=== PATIENT | male | born 1970 | race Two or more races ===

== ENCOUNTER 2020-02-23 12:48 | Emergency (ER) | payer MEDICAID ==
[~2020-02-23] VITALS: Ht 170.2 cm; Wt 124.7 kg
[2020-02-23 15:08] LABS: Basophils # (auto) 0.1 10 ^3/uL (0-0.2); Basophils % (auto) 0.6 % (0.0-2.0); Eosinophils # (auto) 0.2 10 ^3/uL (0-0.8); Eosinophils % (auto) 2.7 % (0.0-7.0); Hematocrit 43.9 % (41.0-53.0); Hemoglobin 14.9 g/dL (13.5-17.5); Lymphocytes # (auto) 1.5 10 ^3/uL (0.4-5.4); Lymphocytes % (auto) 17.6 % (10.0-50.0); Mean Corpuscular Hemoglobin 29.8 pg (28.0-32.0); Mean Corpuscular Hgb Conc. 33.8 g/dL (32.0-36.0); Mean Corpuscular Volume 88.2 fL (80.0-100.0); Monocytes # (auto) 0.9 10 ^3/uL (0-1.3); Monocytes % (auto) 10.3 % (0.0-12.0); Neutrophils % (auto) 68.8 % (37.0-80.0); Nucleated Red Blood Cells % 0.1 %; Platelet Count (auto) 260 10^3/uL (140-450); Red Blood Cells 4.98 10^6/uL (4.5-5.90); White Blood Cell 8.7 10^3/uL (4.4-10.8)
[2020-02-23 15:09] VITALS: BP 155/90
[2020-02-23 15:24] LABS: Albumin 3.1 g/dL (3.4-5.0); Calcium 8.6 mg/dL (8.5-10.1); Potassium 4.5 mmol/L (3.5-5.1)
[2020-02-23 15:33] LABS: BUN/Creatinine Ratio 22.1; Bilirubin, Total 0.2 mg/dL (0.2-1.0); Total Protein 8.1 g/dL (6.4-8.2)
[2020-02-23] MEDS ORDERED: cefTRIAXone 1GM/50ML D5W 50 ML IV ONE (16:00)
[2020-02-23] MEDS ORDERED: CLINDAMYCIN 900MG IV 50 ML IV ONE (16:00)
== END 2020-02-23 17:04 | disposition home or self-care (01) ==
LOC: ER 12:48
DX: E08.621 Diabetes mellitus due to underlying condition with foot ulcer (principal); L97.411 Non-pressure chronic ulcer of right heel and midfoot limited to breakdown of skin
CPT/HCPCS: 36415; 73700; 80053; 85025; 96365; 96368; 99284; J0696; J3490; 96366

== ENCOUNTER 2020-05-12 09:33 | Inpatient (IN) | payer MEDICAID ==
[2020-05-11] MEDS: InsuLIN REG 1unit/0.01ml Soln (100units/ml) SC SCH (22:34)
[~2020-05-12] VITALS: Ht 170.2 cm; Wt 124.0 kg
[2020-05-12] MEDS ORDERED: traMADol HCL 50 MG TAB PO ONE (10:45)
[2020-05-12 11:06] LABS: Basophils # (auto) 0.1 10 ^3/uL (0-0.2); Basophils % (auto) 0.6 % (0.0-2.0); Eosinophils # (auto) 0.2 10 ^3/uL (0-0.8); Eosinophils % (auto) 2.4 % (0.0-7.0); Hematocrit 41.8 % (41.0-53.0); Hemoglobin 14.3 g/dL (13.5-17.5); Lymphocytes # (auto) 1.2 10 ^3/uL (0.4-5.4); Mean Corpuscular Hgb Conc. 34.3 g/dL (32.0-36.0); Mean Corpuscular Volume 87.5 fL (80.0-100.0); Monocytes # (auto) 0.8 10 ^3/uL (0-1.3); Monocytes % (auto) 9.3 % (0.0-12.0); Neutrophils # (auto) 6.3 10 ^3/uL (1.6-8.6); Neutrophils % (auto) 73.7 % (37.0-80.0); Nucleated Red Blood Cells % 0.1 %; Red Blood Cells 4.78 10^6/uL (4.5-5.90); Red Cell Distribution Width 13.1 % (11.8-14.3); White Blood Cell 8.6 10^3/uL (4.4-10.8)
[2020-05-12 11:26] LABS: Calcium 8.5 mg/dL (8.5-10.1); Potassium 4.1 mmol/L (3.5-5.1)
[2020-05-12 11:29] LABS: BUN/Creatinine Ratio 17.2; Bilirubin, Total 0.3 mg/dL (0.2-1.0); Total Protein 7.7 g/dL (6.4-8.2)
[2020-05-12] MEDS ORDERED: VANCOMYCIN PER PHARMACY 0 MG IV SCH (13:30)
[2020-05-12] MEDS ORDERED: SODIUM CHLORIDE 0.9% 1,000 ML IV ONE (13:30)
[2020-05-12] MEDS ORDERED: ONDANSETRON HCL 4 MG/2 ML VIAL IV ONE (13:30)
[2020-05-12] MEDS ORDERED: HYDROcodone-ACET 5/325MG TAB PO ONE (13:30)
[2020-05-12] MEDS ORDERED: cefTRIAXone 1GM/50ML D5W 50 ML IV ONE (14:00)
[2020-05-12] MEDS ORDERED: GLIP10TA9 PO (14:50)
[2020-05-12] MEDS ORDERED: ERTU15TA PO (14:50)
[2020-05-12] MEDS ORDERED: SIMV-8 PO (14:50)
[2020-05-12] MEDS ORDERED: METF-929 PO (14:50)
[2020-05-12] MEDS ORDERED: SPIR25TA8 PO (14:50)
[2020-05-12] MEDS ORDERED: ONDANSETRON HCL 4 MG/2 ML VIAL IV PRN (15:00)
[2020-05-12] MEDS ORDERED: HYDROcodone-ACET 5/325MG TAB PO PRN (15:00)
[2020-05-12] MEDS: cefTRIAXone 1GM/50ML D5W 50 ML IV SCH (15:14)
[2020-05-12] MEDS: VANCOMYCIN 1GM/250ML 250 ML IV SCH (15:15)
[2020-05-12] MEDS ORDERED: DEXTROSE (50%) 50ML SYRG IV PRN (21:15)
[2020-05-12] MEDS ORDERED: LIDOCAINE 1% (LOCAL ANESTH.) PF 5ml SDV ID ONE (21:15)
[2020-05-12] MEDS: ACCU-CHEK COMFORT CURVE STRIP VI SCH (22:56)
[2020-05-12] MEDS: ATORVASTATIN 20 MG TAB PO SCH (23:36)
[2020-05-13] MEDS: VANCOMYCIN 1GM/250ML 250 ML IV SCH ×4 (00:50→22:50)
[2020-05-13 02:07] VITALS: BP 144/91
[2020-05-13 04:55] VITALS: BP 129/75
[2020-05-13 06:31] LABS: Basophils # (auto) 0 10 ^3/uL (0-0.2); Basophils % (auto) 0.5 % (0.0-2.0); Eosinophils # (auto) 0.2 10 ^3/uL (0-0.8); Eosinophils % (auto) 2.2 % (0.0-7.0); Hematocrit 39.2 % (41.0-53.0); Hemoglobin 13.4 g/dL (13.5-17.5); Lymphocytes # (auto) 1.9 10 ^3/uL (0.4-5.4); Lymphocytes % (auto) 24.3 % (10.0-50.0); Mean Corpuscular Hemoglobin 29.7 pg (28.0-32.0); Mean Corpuscular Hgb Conc. 34.2 g/dL (32.0-36.0); Mean Corpuscular Volume 86.9 fL (80.0-100.0); Monocytes # (auto) 1.1 10 ^3/uL (0-1.3); Monocytes % (auto) 13.6 % (0.0-12.0); Neutrophils # (auto) 4.7 10 ^3/uL (1.6-8.6); Neutrophils % (auto) 59.4 % (37.0-80.0); Red Blood Cells 4.51 10^6/uL (4.5-5.90); Red Cell Distribution Width 13.3 % (11.8-14.3); White Blood Cell 7.9 10^3/uL (4.4-10.8)
[2020-05-13] MEDS: ACCU-CHEK COMFORT CURVE STRIP VI SCH ×4 (06:34→22:30)
[2020-05-13] MEDS: InsuLIN REG 1unit/0.01ml Soln (100units/ml) SC SCH ×4 (06:35→22:30)
[2020-05-13 06:45] LABS: BUN/Creatinine Ratio 22.7; Calcium 8.2 mg/dL (8.5-10.1); Potassium 3.7 mmol/L (3.5-5.1)
[2020-05-13 06:50] LABS: INR 0.99 (0.9-1.15); Partial Thromboplastin Time 29.3 sec (23.0-31.2)
[2020-05-13 08:00] VITALS: BP 127/70
[2020-05-13] MEDS: cefTRIAXone 1GM/50ML D5W 50 ML IV SCH (08:58)
[2020-05-13 16:00] VITALS: BP 133/73
[2020-05-13 22:00] VITALS: BP 130/79
[2020-05-13] MEDS: ATORVASTATIN 20 MG TAB PO SCH (22:30)
[2020-05-14 05:00] VITALS: BP 126/85
[2020-05-14] MEDS: VANCOMYCIN 1GM/250ML 250 ML IV SCH ×3 (05:30→23:30)
[2020-05-14] MEDS ORDERED: ROPIVACAINE 0.5% (5MG/ML) 20ML AMPULE IJ ONE (06:53)
[2020-05-14] MEDS ORDERED: NEOMYCIN-BACITRACIN-POLYM 15GM TOP OINT TOP ONE (06:53)
[2020-05-14] MEDS ORDERED: ceFAZolin 1GM VL ONE (06:54)
[2020-05-14] MEDS: ACCU-CHEK COMFORT CURVE STRIP VI SCH ×4 (07:09→22:00)
[2020-05-14] MEDS: InsuLIN REG 1unit/0.01ml Soln (100units/ml) SC SCH ×4 (07:09→22:00)
[2020-05-14] MEDS ORDERED: ceFAZolin 1GM/50ML 50 ML IV ONE (07:12)
[2020-05-14] MEDS ORDERED: MIDAZOLAM HCL 2MG/2ML 2ml VIAL (1mg/ml) ONE (07:33)
[2020-05-14] MEDS ORDERED: diphenhdrAMINE HCL 50 MG/1 ML VL ONE (07:39)
[2020-05-14] MEDS ORDERED: GLYCOPYRROLATE 0.2 MG/ML 1ML VIAL ONE ×2 (07:39→07:42)
[2020-05-14] MEDS ORDERED: METOCLOPRAMIDE HCL 5MG/ml INJ 2ml VIAL ONE (07:39)
[2020-05-14] MEDS ORDERED: KETAMINE HCL 10 ML ONE (07:42)
[2020-05-14] MEDS ORDERED: LIDOCAINE 2% (LOCAL ANESTH.) PF 5ml SDV ONE (07:45)
[2020-05-14] MEDS ORDERED: PROPOFOL 10 MG/ML 20 ML IV ONE (07:45)
[2020-05-14 08:00] VITALS: BP 153/88
[2020-05-14] MEDS ORDERED: NALOXONE HCL 0.4 MG/ML VIAL IV PRN (08:00)
[2020-05-14] MEDS ORDERED: hydrALAZINE HCL 20 MG/ML VL IV PRN (08:00)
[2020-05-14] MEDS ORDERED: HYDROmorphone HCL 2 MG/ML VL IV PRN ×2 (08:00)
[2020-05-14] MEDS ORDERED: ONDANSETRON HCL 4 MG/2 ML VIAL IV PRN (08:00)
[2020-05-14] MEDS ORDERED: ACCU-CHEK COMFORT CURVE STRIP VI ONE (08:00)
[2020-05-14] MEDS: cefTRIAXone 1GM/50ML D5W 50 ML IV SCH (09:25)
[2020-05-14 16:00] VITALS: BP 132/75
[2020-05-14] MEDS: ATORVASTATIN 20 MG TAB PO SCH (22:00)
[2020-05-14 22:21] VITALS: BP 149/84
[2020-05-15 05:00] VITALS: BP 148/89
[2020-05-15 06:07] LABS: Basophils # (auto) 0.1 10 ^3/uL (0-0.2); Basophils % (auto) 0.8 % (0.0-2.0); Eosinophils # (auto) 0.3 10 ^3/uL (0-0.8); Eosinophils % (auto) 3.8 % (0.0-7.0); Hemoglobin 13.4 g/dL (13.5-17.5); Lymphocytes # (auto) 1.7 10 ^3/uL (0.4-5.4); Lymphocytes % (auto) 20.1 % (10.0-50.0); Mean Corpuscular Hemoglobin 29.8 pg (28.0-32.0); Mean Corpuscular Hgb Conc. 34.4 g/dL (32.0-36.0); Mean Corpuscular Volume 86.7 fL (80.0-100.0); Monocytes # (auto) 0.7 10 ^3/uL (0-1.3); Monocytes % (auto) 8.2 % (0.0-12.0); Neutrophils # (auto) 5.6 10 ^3/uL (1.6-8.6); Neutrophils % (auto) 67.1 % (37.0-80.0); Red Cell Distribution Width 13.3 % (11.8-14.3); White Blood Cell 8.4 10^3/uL (4.4-10.8)
[2020-05-15 06:13] LABS: Calcium 8.4 mg/dL (8.5-10.1); Potassium 3.7 mmol/L (3.5-5.1)
[2020-05-15 06:14] LABS: BUN/Creatinine Ratio 22.4
[2020-05-15] MEDS: ACCU-CHEK COMFORT CURVE STRIP VI SCH ×4 (07:00→22:00)
[2020-05-15] MEDS: InsuLIN REG 1unit/0.01ml Soln (100units/ml) SC SCH ×4 (07:00→22:00)
[2020-05-15 08:00] VITALS: BP 141/88
[2020-05-15] MEDS: VANCOMYCIN 1GM/250ML 250 ML IV SCH ×2 (08:27→16:36)
[2020-05-15] MEDS: cefTRIAXone 1GM/50ML D5W 50 ML IV SCH (10:11)
[2020-05-15 16:00] VITALS: BP 146/65
[2020-05-15] MEDS ORDERED: CATHFLO ACTIVASE (ALTEPLASE) 2 MG VIAL IV ONE (16:45)
[2020-05-15 22:00] VITALS: BP 135/79
[2020-05-15] MEDS: ATORVASTATIN 20 MG TAB PO SCH (22:00)
[2020-05-16] MEDS: VANCOMYCIN 1GM/250ML 250 ML IV SCH ×2 (00:13→11:04)
[2020-05-16 05:00] VITALS: BP 141/90
[2020-05-16] MEDS: InsuLIN REG 1unit/0.01ml Soln (100units/ml) SC SCH ×2 (06:24→11:30)
[2020-05-16] MEDS: ACCU-CHEK COMFORT CURVE STRIP VI SCH ×2 (06:24→11:30)
[2020-05-16 08:00] VITALS: BP 139/87
[2020-05-16] MEDS: cefTRIAXone 1GM/50ML D5W 50 ML IV SCH (09:23)
[2020-05-16] MEDS ORDERED: [UNRECOGNIZED DRUG - OTHER] IV (13:17)
[2020-05-16] MEDS ORDERED: CEFT1INJ17 IV (13:17)
[2020-05-16] MEDS ORDERED: HYDR-4902 PO (13:17)
[2020-05-16 13:57] VITALS: BP 141/90
== END 2020-05-16 16:00 | disposition home health service (06) | DRG 314 ==
LOC: ER 09:33 → TELE 09:34 → TELE-EAST 23:51 → TELE-CENTR 05-13 20:31
PROVIDERS: ADMIT Internal Medicine; ATTEND Internal Medicine
PROC: 02HV33Z Insertion of Infusion Device into Superior Vena Cava, Percutaneous Approach (ICD-10-PCS; 2020-05-13)
PROC: B548ZZA Ultrasonography of Superior Vena Cava, Guidance (ICD-10-PCS; 2020-05-13)
PROC: 0QTN0ZZ Resection of Right Metatarsal, Open Approach (ICD-10-PCS; 2020-05-14)
PROC: 0Y6P0Z0 Detachment at Right 1st Toe, Complete, Open Approach (ICD-10-PCS; principal; 2020-05-14 07:35)
DX: E11.69 Type 2 diabetes mellitus with other specified complication (principal); E11.621 Type 2 diabetes mellitus with foot ulcer; L97.519 Non-pressure chronic ulcer of other part of right foot with unspecified severity; L03.115 Cellulitis of right lower limb; E78.5 Hyperlipidemia, unspecified; I10 Essential (primary) hypertension; M86.8X7 Other osteomyelitis, ankle and foot; Z20.822 Contact with and (suspected) exposure to COVID-19; M00.9 Pyogenic arthritis, unspecified
CPT/HCPCS: 36415; 36569; 71045; 73700; 80048; 80053; 80202; 82962; 85025; 85610; 85730; 87070; 87075; 87077; 87186; 87205; 87426; 93926; 96361; 96365; 96366; 96368; 96375; G0378; J0690; J0696; J1815; J2001; J2250; J2405; J2704

== ENCOUNTER 2021-08-15 15:40 | Emergency (ER) | payer MEDICAID ==
[~2021-08-15] VITALS: Ht 172.7 cm; Wt 124.7 kg
[~2021-08-15 15:40] MED LIST: CEFT1INJ17 IV; ERTU15TA PO; GLIP10TA9 PO; HYDR-4902 PO; METF-929 PO; SIMV-8 PO; SPIR25TA8 PO; [UNRECOGNIZED DRUG - OTHER] IV
[2021-08-15] MEDS ORDERED: VANCOMYCIN 1GM/250ML 250 ML IV ONE (17:45)
[2021-08-15] MEDS ORDERED: CEFEPIME 2 GM in SODIUM CHL 0.9% 50 ML IV ONE (17:45)
[2021-08-15 18:26] LABS: Basophils # (auto) 0.1 10 ^3/uL (0-0.2); Basophils % (auto) 0.9 % (0.0-2.0); Eosinophils # (auto) 0.3 10 ^3/uL (0-0.8); Eosinophils % (auto) 4.2 % (0.0-7.0); Hematocrit 42.9 % (41.0-53.0); Hemoglobin 14.4 g/dL (13.5-17.5); Lymphocytes % (auto) 25.6 % (10.0-50.0); Mean Corpuscular Hemoglobin 29.3 pg (28.0-32.0); Mean Corpuscular Hgb Conc. 33.7 g/dL (32.0-36.0); Mean Corpuscular Volume 87.2 fL (80.0-100.0); Monocytes # (auto) 0.5 10 ^3/uL (0-1.3); Monocytes % (auto) 6.7 % (0.0-12.0); Neutrophils % (auto) 62.6 % (37.0-80.0); Red Blood Cells 4.92 10^6/uL (4.5-5.90); Red Cell Distribution Width 13.2 % (11.8-14.3)
[2021-08-15 18:40] LABS: Calcium 8.7 mg/dL (8.5-10.1); Potassium 3.9 mmol/L (3.5-5.1)
[2021-08-15 18:43] LABS: BUN/Creatinine Ratio 23.2
[2021-08-15] MEDS ORDERED: LEVO750T64 PO (21:07)
[2021-08-15 22:28] VITALS: BP 146/95
[2021-08-16] MEDS ORDERED: LEVO750T64 PO (02:17)
== END 2021-08-16 02:20 | disposition home or self-care (01) ==
LOC: ER 15:40
DX: E11.621 Type 2 diabetes mellitus with foot ulcer (principal); L97.511 Non-pressure chronic ulcer of other part of right foot limited to breakdown of skin; I10 Essential (primary) hypertension; Z79.899 Other long term (current) drug therapy
CPT/HCPCS: 36415; 73630; 80048; 83605; 85025; 85652; 87040; 96365; 96366; 96367; 99284; J0692; J3370

== ENCOUNTER 2022-05-05 01:11 | Inpatient (IN) | payer MEDICAID ==
[~2022-05-05] VITALS: Ht 170.2 cm; Wt 117.9 kg
[~2022-05-05 01:11] MED LIST changes: +LEVO750T64 PO
[2022-05-05 03:29] LABS: Basophils # (auto) 0.1 10 ^3/uL (0-0.2); Basophils % (auto) 0.7 % (0.0-2.0); Eosinophils # (auto) 0.3 10 ^3/uL (0-0.8); Eosinophils % (auto) 2.7 % (0.0-7.0); Hematocrit 46.8 % (41.0-53.0); Hemoglobin 15.6 g/dL (13.5-17.5); Lymphocytes % (auto) 18.6 % (10.0-50.0); Mean Corpuscular Hemoglobin 29.3 pg (28.0-32.0); Mean Corpuscular Hgb Conc. 33.4 g/dL (32.0-36.0); Mean Corpuscular Volume 87.7 fL (80.0-100.0); Monocytes # (auto) 0.8 10 ^3/uL (0-1.3); Neutrophils # (auto) 7.4 10 ^3/uL (1.6-8.6); Red Blood Cells 5.33 10^6/uL (4.5-5.90); Red Cell Distribution Width 14.2 % (11.8-14.3); White Blood Cell 10.6 10^3/uL (4.4-10.8)
[2022-05-05 03:38] LABS: Albumin 3.3 g/dL (3.4-5.0); Potassium 4.4 mmol/L (3.5-5.1)
[2022-05-05 03:47] LABS: BUN/Creatinine Ratio 19.4; Bilirubin, Total 0.4 mg/dL (0.2-1.0); CRP High Sensitivity 7.84 mg/dL (< 0.3); Total Protein 7.5 g/dL (6.4-8.2)
[2022-05-05] MEDS ORDERED: TETANUS-DIPTH-ACEL PERTUSSIS 0.5ML SYR Tdap IM ONE (06:00)
[2022-05-05] MEDS ORDERED: cefTRIAXone 1GM/50ML D5W 50 ML IV ONE (06:00)
[2022-05-05] MEDS ORDERED: DOCUSATE SOD 100 MG CAP PO PRN (10:15)
[2022-05-05] MEDS ORDERED: VANCOMYCIN PER PHARMACY 0 MG IV SCH (10:15)
[2022-05-05] MEDS ORDERED: ONDANSETRON HCL 4 MG/2 ML VIAL IV PRN (10:15)
[2022-05-05] MEDS ORDERED: DEXTROSE (50%) 50ML SYRG IV PRN (10:15)
[2022-05-05] MEDS ORDERED: SIMVASTATIN 20 MG TAB PO SCH (10:29)
[2022-05-05] MEDS ORDERED: VANCOMYCIN 1GM/250ML 250 ML IV ONE (10:45)
[2022-05-05] MEDS: SODIUM CHLORIDE 0.9% 1,000 ML IV SCH ×2 (11:05→18:35)
[2022-05-05] MEDS: ACCU-CHEK COMFORT CURVE STRIP VI SCH ×3 (11:43→22:26)
[2022-05-05] MEDS: InsuLIN REG 1unit/0.01ml Soln (100units/ml) SC SCH ×3 (12:03→22:00)
[2022-05-05] MEDS: VANCOMYCIN 1GM/250ML 250 ML IV SCH (18:38)
[2022-05-05] MEDS: SIMVASTATIN 20 MG TABLET PO SCH (21:00)
[2022-05-06] MEDS: VANCOMYCIN 1GM/250ML 250 ML IV SCH ×5 (00:09→23:53)
[2022-05-06] MEDS: SODIUM CHLORIDE 0.9% 1,000 ML IV SCH ×3 (02:55→19:35)
[2022-05-06 06:54] LABS: Potassium 3.9 mmol/L (3.5-5.1)
[2022-05-06 06:56] LABS: Basophils # (auto) 0 10 ^3/uL (0-0.2); Basophils % (auto) 0.4 % (0.0-2.0); Eosinophils # (auto) 0.3 10 ^3/uL (0-0.8); Eosinophils % (auto) 2.8 % (0.0-7.0); Hematocrit 44.2 % (41.0-53.0); Hemoglobin 14.6 g/dL (13.5-17.5); Lymphocytes # (auto) 1.2 10 ^3/uL (0.4-5.4); Mean Corpuscular Hemoglobin 28.7 pg (28.0-32.0); Mean Corpuscular Hgb Conc. 32.9 g/dL (32.0-36.0); Monocytes # (auto) 0.8 10 ^3/uL (0-1.3); Monocytes % (auto) 9.2 % (0.0-12.0); Neutrophils # (auto) 6.7 10 ^3/uL (1.6-8.6); Neutrophils % (auto) 74.6 % (37.0-80.0); Nucleated Red Blood Cells % 0.3 %; Red Blood Cells 5.08 10^6/uL (4.5-5.90); Red Cell Distribution Width 13.7 % (11.8-14.3)
[2022-05-06] MEDS: InsuLIN REG 1unit/0.01ml Soln (100units/ml) SC SCH ×4 (07:00→22:00)
[2022-05-06 07:01] LABS: Albumin 2.9 g/dL (3.4-5.0); BUN/Creatinine Ratio 22.2; Bilirubin, Total 0.5 mg/dL (0.2-1.0); Calcium 8.3 mg/dL (8.5-10.1); Total Protein 6.2 g/dL (6.4-8.2)
[2022-05-06] MEDS: ACCU-CHEK COMFORT CURVE STRIP VI SCH ×4 (07:02→22:06)
[2022-05-06] MEDS: cefTRIAXone 1GM/50ML D5W 50 ML IV SCH (09:40)
[2022-05-06] MEDS: ENOXAPARIN SOD 40 MG/0.4 ML SYRINGE SC SCH (09:43)
[2022-05-06 12:57] VITALS: BP 139/78
[2022-05-06 13:56] VITALS: BP 144/89
[2022-05-06 17:00] VITALS: BP 145/82
[2022-05-06] MEDS: SIMVASTATIN 20 MG TABLET PO SCH (21:44)
[2022-05-06 21:46] VITALS: BP 152/88
[2022-05-07] MEDS: SODIUM CHLORIDE 0.9% 1,000 ML IV SCH ×3 (03:55→20:35)
[2022-05-07] MEDS: VANCOMYCIN 1GM/250ML 250 ML IV SCH ×4 (04:28→22:46)
[2022-05-07 04:36] VITALS: BP 140/77
[2022-05-07] MEDS: ACCU-CHEK COMFORT CURVE STRIP VI SCH ×4 (06:26→21:40)
[2022-05-07] MEDS: InsuLIN REG 1unit/0.01ml Soln (100units/ml) SC SCH (06:27)
[2022-05-07 09:00] VITALS: BP 167/91
[2022-05-07] MEDS: cefTRIAXone 1GM/50ML D5W 50 ML IV SCH (10:15)
[2022-05-07] MEDS: ENOXAPARIN SOD 40 MG/0.4 ML SYRINGE SC SCH (10:16)
[2022-05-07 13:00] VITALS: BP 153/87
[2022-05-07] MEDS: metFORMIN HYDROCHLORIDE 500 MG TAB PO SCH ×2 (13:00→21:30)
[2022-05-07] MEDS: glipiZIDE 5 MG TAB PO SCH ×2 (13:00→21:40)
[2022-05-07 17:00] VITALS: BP 149/81
[2022-05-07] MEDS ORDERED: STEGLATRO 15 MG PO SCH (17:00)
[2022-05-07] MEDS: DAKINS QUARTER STR 0.125% (NaHypochlorite) 473 ML TOPICAL SOL TOP SCH (21:40)
[2022-05-07 21:51] VITALS: BP 144/82
[2022-05-07] MEDS ORDERED: ATORVASTATIN 20 MG TAB PO SCH (22:00)
[2022-05-07] MEDS ORDERED: PATIENTS OWN MEDICATION PO SCH (22:00)
[2022-05-08 05:00] VITALS: BP 127/75
[2022-05-08] MEDS: VANCOMYCIN 1GM/250ML 250 ML IV SCH ×2 (05:00→11:00)
[2022-05-08] MEDS: SODIUM CHLORIDE 0.9% 1,000 ML IV SCH ×3 (05:58→21:17)
[2022-05-08] MEDS: ACCU-CHEK COMFORT CURVE STRIP VI SCH ×4 (05:59→21:16)
[2022-05-08] MEDS ORDERED: glipiZIDE 5 MG TAB PO SCH (07:00)
[2022-05-08] MEDS ORDERED: metFORMIN HYDROCHLORIDE 500 MG TAB PO SCH ×2 (08:00→10:00)
[2022-05-08 09:00] VITALS: BP 145/81
[2022-05-08] MEDS: glipiZIDE 5 MG TAB PO SCH ×2 (09:34→21:16)
[2022-05-08] MEDS: metFORMIN HYDROCHLORIDE 500 MG TAB PO SCH ×2 (09:35→21:15)
[2022-05-08] MEDS: cefTRIAXone 1GM/50ML D5W 50 ML IV SCH (09:35)
[2022-05-08] MEDS: ENOXAPARIN SOD 40 MG/0.4 ML SYRINGE SC SCH (09:35)
[2022-05-08] MEDS: DAKINS QUARTER STR 0.125% (NaHypochlorite) 473 ML TOPICAL SOL TOP SCH ×2 (09:36→21:16)
[2022-05-08] MEDS ORDERED: AMPICILLIN INJ 1 GM in SODIUM CHL 0.9% 50 ML IV SCH (12:00)
[2022-05-08 12:47] VITALS: BP 135/80
[2022-05-08] MEDS: AMPICILLIN INJ 1 GM in SODIUM CHL 0.9% 50 ML IV SCH ×2 (14:44→21:11)
[2022-05-08 16:59] VITALS: BP 138/78
[2022-05-08] MEDS: ATORVASTATIN 20 MG TAB PO SCH (18:13)
[2022-05-08] MEDS: STEGLATRO 15 MG PO SCH (21:15)
[2022-05-08 22:00] VITALS: BP 160/84
[2022-05-09] MEDS: AMPICILLIN INJ 1 GM in SODIUM CHL 0.9% 50 ML IV SCH ×4 (02:35→22:34)
[2022-05-09 04:52] VITALS: BP 128/73
[2022-05-09] MEDS: SODIUM CHLORIDE 0.9% 1,000 ML IV SCH ×3 (05:23→22:35)
[2022-05-09 05:37] LABS: Albumin 2.9 g/dL (3.4-5.0); Calcium 8.6 mg/dL (8.5-10.1); Potassium 4.2 mmol/L (3.5-5.1)
[2022-05-09 05:40] LABS: Basophils # (auto) 0.1 10 ^3/uL (0-0.2); Basophils % (auto) 0.8 % (0.0-2.0); Eosinophils # (auto) 0.3 10 ^3/uL (0-0.8); Eosinophils % (auto) 3.5 % (0.0-7.0); Hematocrit 44.1 % (41.0-53.0); Hemoglobin 14.5 g/dL (13.5-17.5); Lymphocytes # (auto) 1.8 10 ^3/uL (0.4-5.4); Lymphocytes % (auto) 24.2 % (10.0-50.0); Mean Corpuscular Hemoglobin 28.6 pg (28.0-32.0); Mean Corpuscular Hgb Conc. 32.9 g/dL (32.0-36.0); Mean Corpuscular Volume 86.8 fL (80.0-100.0); Monocytes # (auto) 0.6 10 ^3/uL (0-1.3); Monocytes % (auto) 8.6 % (0.0-12.0); Neutrophils # (auto) 4.8 10 ^3/uL (1.6-8.6); Neutrophils % (auto) 62.9 % (37.0-80.0); Red Blood Cells 5.08 10^6/uL (4.5-5.90); Red Cell Distribution Width 13.6 % (11.8-14.3); White Blood Cell 7.6 10^3/uL (4.4-10.8)
[2022-05-09 05:43] LABS: BUN/Creatinine Ratio 22.5; Bilirubin, Total 0.4 mg/dL (0.2-1.0); Total Protein 6.4 g/dL (6.4-8.2)
[2022-05-09] MEDS: ACCU-CHEK COMFORT CURVE STRIP VI SCH ×4 (05:51→22:00)
[2022-05-09 09:00] VITALS: BP 130/83
[2022-05-09] MEDS: ENOXAPARIN SOD 40 MG/0.4 ML SYRINGE SC SCH (09:32)
[2022-05-09] MEDS: metFORMIN HYDROCHLORIDE 500 MG TAB PO SCH ×2 (09:33→22:31)
[2022-05-09] MEDS: glipiZIDE 5 MG TAB PO SCH ×2 (09:34→22:31)
[2022-05-09] MEDS: DAKINS QUARTER STR 0.125% (NaHypochlorite) 473 ML TOPICAL SOL TOP SCH ×2 (09:38→22:00)
[2022-05-09 13:00] VITALS: BP 127/71
[2022-05-09 17:00] VITALS: BP 137/79
[2022-05-09] MEDS: ATORVASTATIN 20 MG TAB PO SCH (17:57)
[2022-05-09 21:52] VITALS: BP 159/92
[2022-05-09] MEDS: STEGLATRO 15 MG PO SCH (22:32)
[2022-05-10] MEDS: AMPICILLIN INJ 1 GM in SODIUM CHL 0.9% 50 ML IV SCH ×3 (04:19→15:00)
[2022-05-10 05:01] VITALS: BP 113/70
[2022-05-10] MEDS: ACCU-CHEK COMFORT CURVE STRIP VI SCH ×2 (07:00→11:30)
[2022-05-10] MEDS: SODIUM CHLORIDE 0.9% 1,000 ML IV SCH ×2 (07:00→15:15)
[2022-05-10 09:00] VITALS: BP 113/65
[2022-05-10] MEDS: metFORMIN HYDROCHLORIDE 500 MG TAB PO SCH (09:50)
[2022-05-10] MEDS: glipiZIDE 5 MG TAB PO SCH (09:51)
[2022-05-10] MEDS: ENOXAPARIN SOD 40 MG/0.4 ML SYRINGE SC SCH (09:51)
[2022-05-10] MEDS: DAKINS QUARTER STR 0.125% (NaHypochlorite) 473 ML TOPICAL SOL TOP SCH (10:00)
[2022-05-10] MEDS ORDERED: AMPI500C8 PO (11:01)
[2022-05-10] MEDS ORDERED: HYDR-4902 PO (11:01)
[2022-05-10 13:00] VITALS: BP 137/85
== END 2022-05-10 16:00 | disposition home or self-care (01) | DRG 344 ==
LOC: ER 01:11 → OVERFLOW 10:19 → EAST 05-06 12:31 → WEST WING 05-06 13:30
PROVIDERS: ADMIT Nurse Practitioner Family; ATTEND Family Medicine
DX: M86.8X7 Other osteomyelitis, ankle and foot (principal); E11.21 Type 2 diabetes mellitus with diabetic nephropathy; E11.40 Type 2 diabetes mellitus with diabetic neuropathy, unspecified; L97.512 Non-pressure chronic ulcer of other part of right foot with fat layer exposed; E11.51 Type 2 diabetes mellitus with diabetic peripheral angiopathy without gangrene; E11.69 Type 2 diabetes mellitus with other specified complication; E11.621 Type 2 diabetes mellitus with foot ulcer; E11.65 Type 2 diabetes mellitus with hyperglycemia; Z20.822 Contact with and (suspected) exposure to COVID-19; E78.5 Hyperlipidemia, unspecified; M19.90 Unspecified osteoarthritis, unspecified site; Z83.3 Family history of diabetes mellitus; Z89.411 Acquired absence of right great toe; Z89.429 Acquired absence of other toe(s), unspecified side
CPT/HCPCS: 36415; 73630; 73700; 80053; 80202; 82962; 83036; 85025; 85652; 86141; 87040; 87205; 87426; 90471; 90715; 93926; 93971; 96365; 96367; G0378; J0696; J1815

== ENCOUNTER 2022-08-15 12:53 | Inpatient (IN) | payer MEDICAID ==
[~2022-08-15] VITALS: Ht 170.2 cm; Wt 123.1 kg
[~2022-08-15 12:53] MED LIST changes: +AMPI500C8 PO; -CEFT1INJ17 IV; -LEVO750T64 PO; -[UNRECOGNIZED DRUG - OTHER] IV
[2022-08-15 14:33] LABS: Basophils # (auto) 0.1 10 ^3/uL (0-0.2); Basophils % (auto) 0.6 % (0.0-2.0); Eosinophils # (auto) 0.3 10 ^3/uL (0-0.8); Eosinophils % (auto) 3.6 % (0.0-7.0); Hematocrit 45.8 % (41.0-53.0); Hemoglobin 15.6 g/dL (13.5-17.5); Lymphocytes # (auto) 2.2 10 ^3/uL (0.4-5.4); Lymphocytes % (auto) 24.8 % (10.0-50.0); Mean Corpuscular Hemoglobin 29.4 pg (28.0-32.0); Mean Corpuscular Hgb Conc. 34.1 g/dL (32.0-36.0); Mean Corpuscular Volume 86.1 fL (80.0-100.0); Monocytes # (auto) 0.6 10 ^3/uL (0-1.3); Monocytes % (auto) 6.3 % (0.0-12.0); Neutrophils # (auto) 5.7 10 ^3/uL (1.6-8.6); Neutrophils % (auto) 64.7 % (37.0-80.0); Nucleated Red Blood Cells % 0.3 %; Red Blood Cells 5.31 10^6/uL (4.5-5.90); Red Cell Distribution Width 14.3 % (11.8-14.3); White Blood Cell 8.8 10^3/uL (4.4-10.8)
[2022-08-15 14:47] LABS: INR 0.87 (0.9-1.15); Partial Thromboplastin Time 27.1 sec (24.6-33.4)
[2022-08-15 14:55] LABS: Albumin 3.2 g/dL (3.4-5.0); Calcium 9.1 mg/dL (8.5-10.1); Potassium 4.3 mmol/L (3.5-5.1)
[2022-08-15 14:57] LABS: BUN/Creatinine Ratio 17.6 (10.0-20.0)
[2022-08-15 14:59] LABS: Bilirubin, Total 0.2 mg/dL (0.2-1.0); Total Protein 8.1 g/dL (6.4-8.2)
[2022-08-15] MEDS ORDERED: CLINDAMYCIN 600MG IV 50 ML IV ONE (15:30)
[2022-08-15] MEDS: SODIUM CHLORIDE 0.9% 1,000 ML IV SCH (16:00)
[2022-08-15] MEDS ORDERED: ACETAMINOPHEN 325 MG TAB PO PRN (16:00)
[2022-08-15] MEDS ORDERED: HYDROcodone-ACET 5/325MG TAB PO PRN (16:00)
[2022-08-15] MEDS ORDERED: DEXTROSE (50%) 50ML SYRG IV PRN (16:00)
[2022-08-15] MEDS ORDERED: PANTOPRAZOLE 40 MG/10 ML VIAL INJ IV ONE (16:15)
[2022-08-15] MEDS ORDERED: CLINDAMYCIN 900MG IV 50 ML IV ONE (16:30)
[2022-08-15 16:32] LABS: Cholesterol 157 mg/dL (< 200)
[2022-08-15 16:35] LABS: HDL Cholesterol 32 mg/dL (40-59); LDL Cholesterol 103 mg/dL (< 100); Triglycerides 303 mg/dL (< 150)
[2022-08-15] MEDS: InsuLIN REG 1unit/0.01ml Soln (100units/ml) SC SCH ×2 (17:00→22:54)
[2022-08-15] MEDS: ACCU-CHEK COMFORT CURVE STRIP VI SCH ×2 (17:04→22:54)
[2022-08-15] MEDS: ATORVASTATIN 20 MG TAB PO SCH (23:05)
[2022-08-16] MEDS: CLINDAMYCIN 600MG IV 50 ML IV SCH ×4 (00:30→21:40)
[2022-08-16] MEDS: SODIUM CHLORIDE 0.9% 1,000 ML IV SCH ×2 (05:31→06:31)
[2022-08-16 06:27] LABS: Basophils # (auto) 0 10 ^3/uL (0-0.2); Basophils % (auto) 0.6 % (0.0-2.0); Eosinophils # (auto) 0.3 10 ^3/uL (0-0.8); Eosinophils % (auto) 4.2 % (0.0-7.0); Hematocrit 42.5 % (41.0-53.0); Hemoglobin 14.5 g/dL (13.5-17.5); Lymphocytes # (auto) 1.8 10 ^3/uL (0.4-5.4); Lymphocytes % (auto) 22.8 % (10.0-50.0); Mean Corpuscular Hemoglobin 29.7 pg (28.0-32.0); Mean Corpuscular Hgb Conc. 34.1 g/dL (32.0-36.0); Mean Corpuscular Volume 87.2 fL (80.0-100.0); Monocytes # (auto) 0.6 10 ^3/uL (0-1.3); Monocytes % (auto) 7.6 % (0.0-12.0); Neutrophils # (auto) 5.1 10 ^3/uL (1.6-8.6); Neutrophils % (auto) 64.8 % (37.0-80.0); Nucleated Red Blood Cells % 0.1 %; Red Blood Cells 4.88 10^6/uL (4.5-5.90); Red Cell Distribution Width 14.5 % (11.8-14.3); White Blood Cell 7.8 10^3/uL (4.4-10.8)
[2022-08-16] MEDS: ACCU-CHEK COMFORT CURVE STRIP VI SCH ×4 (06:38→21:41)
[2022-08-16] MEDS: InsuLIN REG 1unit/0.01ml Soln (100units/ml) SC SCH ×4 (06:39→22:00)
[2022-08-16 06:48] LABS: Potassium 4.2 mmol/L (3.5-5.1)
[2022-08-16 06:56] LABS: BUN/Creatinine Ratio 15.7 (10.0-20.0); Bilirubin, Total 0.3 mg/dL (0.2-1.0); Calcium 8.4 mg/dL (8.5-10.1); Total Protein 6.8 g/dL (6.4-8.2)
[2022-08-16] MEDS: SPIRONOLACTONE 25 MG TAB PO SCH (09:36)
[2022-08-16] MEDS: PANTOPRAZOLE 40 MG/10 ML VIAL INJ IV SCH (10:00)
[2022-08-16] MEDS ORDERED: ceFAZolin 1GM/50ML 100 ML IV ONE (10:24)
[2022-08-16] MEDS ORDERED: ROPIVACAINE 0.5% (5MG/ML) 20ML AMPULE IJ ONE (12:34)
[2022-08-16] MEDS ORDERED: ceFAZolin 1GM VL ONE (12:35)
[2022-08-16] MEDS ORDERED: fentaNYL CITRATE 100 MCG/2 ML VL ONE (12:35)
[2022-08-16] MEDS ORDERED: MIDAZOLAM HCL 2MG/2ML 2ml VIAL (1mg/ml) ONE (12:35)
[2022-08-16] MEDS ORDERED: MEPERIDINE HCL (25 MG/ML) 1ML VIAL ONE (12:35)
[2022-08-16] MEDS ORDERED: LABETALOL HCL 5 MG/ML 4ML SYRINGE IV PRN ×2 (12:45)
[2022-08-16] MEDS ORDERED: HYDROmorphone HCL 2 MG/ML VL/or syr IV PRN ×2 (12:45)
[2022-08-16] MEDS ORDERED: ONDANSETRON HCL 4 MG/2 ML VIAL IV PRN ×2 (12:45)
[2022-08-16] MEDS ORDERED: MIDAZOLAM HCL 2MG/2ML 2ml VIAL (1mg/ml) IV PRN ×2 (12:45)
[2022-08-16] MEDS ORDERED: ACCU-CHEK COMFORT CURVE STRIP VI ONE (12:45)
[2022-08-16] MEDS ORDERED: ePHEDrine SULFATE 50 MG/ML AMP IV PRN ×2 (12:45)
[2022-08-16] MEDS ORDERED: MORPHINE SULFATE 4 MG/ML SYR/VIAL IV PRN ×2 (12:45)
[2022-08-16] MEDS ORDERED: DexAMETHasone SOD PHOS 10MG/1ML VIAL INJ ONE (13:35)
[2022-08-16] MEDS ORDERED: PROPOFOL 10 MG/ML 20 ML IV ONE (13:35)
[2022-08-16 15:00] VITALS: BP 158/87
[2022-08-16] MEDS: ATORVASTATIN 20 MG TAB PO SCH (21:36)
[2022-08-16 22:00] VITALS: BP 154/80
[2022-08-17 05:00] VITALS: BP 121/55
[2022-08-17] MEDS: ACCU-CHEK COMFORT CURVE STRIP VI SCH ×4 (06:03→22:10)
[2022-08-17] MEDS: CLINDAMYCIN 600MG IV 50 ML IV SCH ×3 (06:03→22:09)
[2022-08-17] MEDS: InsuLIN REG 1unit/0.01ml Soln (100units/ml) SC SCH ×4 (06:04→22:14)
[2022-08-17 09:15] VITALS: BP 147/83
[2022-08-17] MEDS: SPIRONOLACTONE 25 MG TAB PO SCH (10:28)
[2022-08-17] MEDS: PANTOPRAZOLE 40 MG/10 ML VIAL INJ IV SCH (10:28)
[2022-08-17 12:00] VITALS: BP 148/84
[2022-08-17] MEDS: SODIUM CHLORIDE 0.9% 1,000 ML IV SCH (12:40)
[2022-08-17 16:00] VITALS: BP 130/73
[2022-08-17 22:00] VITALS: BP 117/68
[2022-08-17] MEDS: ATORVASTATIN 20 MG TAB PO SCH (22:09)
[2022-08-17] MEDS: INSULIN LANTUS (GLARGINE) 1 /0.01ml (100units/ml) SC SCH (22:16)
[2022-08-18] MEDS: SODIUM CHLORIDE 0.9% 1,000 ML IV SCH ×2 (04:05→10:52)
[2022-08-18 05:00] VITALS: BP 154/88
[2022-08-18] MEDS: ACCU-CHEK COMFORT CURVE STRIP VI SCH ×4 (05:57→21:07)
[2022-08-18] MEDS: CLINDAMYCIN 600MG IV 50 ML IV SCH ×2 (05:57→18:31)
[2022-08-18] MEDS: InsuLIN REG 1unit/0.01ml Soln (100units/ml) SC SCH ×4 (06:05→21:10)
[2022-08-18 08:47] VITALS: BP 127/77
[2022-08-18] MEDS: SPIRONOLACTONE 25 MG TAB PO SCH (10:50)
[2022-08-18] MEDS: PANTOPRAZOLE 40 MG/10 ML VIAL INJ IV SCH (10:53)
[2022-08-18 13:00] VITALS: BP 147/79
[2022-08-18] MEDS ORDERED: amLODIPine BESYLATE 5 MG TAB PO ONE (15:45)
[2022-08-18] MEDS ORDERED: ENOXAPARIN SOD 40 MG/0.4 ML SYRINGE SC ONE (16:00)
[2022-08-18 17:00] VITALS: BP 159/85
[2022-08-18] MEDS ORDERED: LIDOCAINE 1% (LOCAL ANESTH.) PF 5ml SDV ID ONE (18:30)
[2022-08-18] MEDS: ATORVASTATIN 20 MG TAB PO SCH (21:07)
[2022-08-18] MEDS: INSULIN LANTUS (GLARGINE) 1 /0.01ml (100units/ml) SC SCH (21:10)
[2022-08-18 22:00] VITALS: BP 132/81
[2022-08-18] MEDS: SODIUM CHLOR 0.9% PF (SALINE LOCK) 10ML VIAL/SYR IV SCH (22:00)
[2022-08-19] MEDS: SODIUM CHLORIDE 0.9% 1,000 ML IV SCH ×3 (00:18→20:59)
[2022-08-19] MEDS: CLINDAMYCIN 600MG IV 50 ML IV SCH ×2 (02:02→10:00)
[2022-08-19 05:00] VITALS: BP 151/81
[2022-08-19] MEDS: InsuLIN REG 1unit/0.01ml Soln (100units/ml) SC SCH ×4 (06:24→21:48)
[2022-08-19] MEDS: ACCU-CHEK COMFORT CURVE STRIP VI SCH ×4 (06:24→21:49)
[2022-08-19 06:37] LABS: Basophils # (auto) 0 10 ^3/uL (0-0.2); Basophils % (auto) 0.6 % (0.0-2.0); Eosinophils # (auto) 0.1 10 ^3/uL (0-0.8); Eosinophils % (auto) 0.9 % (0.0-7.0); Hematocrit 45.2 % (41.0-53.0); Hemoglobin 15.2 g/dL (13.5-17.5); Lymphocytes # (auto) 1.7 10 ^3/uL (0.4-5.4); Lymphocytes % (auto) 21.5 % (10.0-50.0); Mean Corpuscular Hemoglobin 29.1 pg (28.0-32.0); Mean Corpuscular Hgb Conc. 33.6 g/dL (32.0-36.0); Mean Corpuscular Volume 86.5 fL (80.0-100.0); Monocytes % (auto) 12.7 % (0.0-12.0); Neutrophils # (auto) 5.1 10 ^3/uL (1.6-8.6); Neutrophils % (auto) 64.3 % (37.0-80.0); Nucleated Red Blood Cells % 0.3 %; Red Blood Cells 5.23 10^6/uL (4.5-5.90); Red Cell Distribution Width 14.4 % (11.8-14.3); White Blood Cell 7.9 10^3/uL (4.4-10.8)
[2022-08-19 07:00] LABS: Albumin 2.8 g/dL (3.4-5.0); Potassium 3.5 mmol/L (3.5-5.1)
[2022-08-19 07:37] LABS: BUN/Creatinine Ratio 17.6 (10.0-20.0); Bilirubin, Total 0.3 mg/dL (0.2-1.0); Total Protein 6.7 g/dL (6.4-8.2)
[2022-08-19 09:00] VITALS: BP 131/78
[2022-08-19] MEDS: SPIRONOLACTONE 25 MG TAB PO SCH (10:05)
[2022-08-19] MEDS: ENOXAPARIN SOD 40 MG/0.4 ML SYRINGE SC SCH (10:12)
[2022-08-19] MEDS: amLODIPine BESYLATE 5 MG TAB PO SCH (10:13)
[2022-08-19] MEDS: PANTOPRAZOLE 40 MG/10 ML VIAL INJ IV SCH (11:47)
[2022-08-19] MEDS: SODIUM CHLOR 0.9% PF (SALINE LOCK) 10ML VIAL/SYR IV SCH ×2 (11:48→22:00)
[2022-08-19 13:38] VITALS: BP 135/72
[2022-08-19] MEDS: CLINDAMYCIN 900MG IV 50 ML IV SCH ×2 (13:54→21:34)
[2022-08-19] MEDS ORDERED: POLYETHYLENE GLYCOL 17 GM PWDR PO ONE (16:00)
[2022-08-19 17:23] VITALS: BP 137/79
[2022-08-19] MEDS: ATORVASTATIN 20 MG TAB PO SCH (21:33)
[2022-08-19] MEDS: DOCUSATE SOD 100 MG CAP PO SCH (21:35)
[2022-08-19] MEDS: INSULIN LANTUS (GLARGINE) 1 /0.01ml (100units/ml) SC SCH (21:48)
[2022-08-19 22:00] VITALS: BP 125/76
[2022-08-20 05:00] VITALS: BP 141/69
[2022-08-20] MEDS: CLINDAMYCIN 900MG IV 50 ML IV SCH ×2 (05:24→14:11)
[2022-08-20] MEDS: InsuLIN REG 1unit/0.01ml Soln (100units/ml) SC SCH ×3 (06:34→17:09)
[2022-08-20] MEDS: ACCU-CHEK COMFORT CURVE STRIP VI SCH ×3 (06:34→17:03)
[2022-08-20 09:00] VITALS: BP 132/81
[2022-08-20] MEDS ORDERED: POLYETHYLENE GLYCOL 17 GM PWDR PO SCH (10:00)
[2022-08-20] MEDS: PANTOPRAZOLE 40 MG/10 ML VIAL INJ IV SCH (11:40)
[2022-08-20] MEDS: DOCUSATE SOD 100 MG CAP PO SCH (11:42)
[2022-08-20] MEDS: amLODIPine BESYLATE 5 MG TAB PO SCH (11:42)
[2022-08-20] MEDS: SODIUM CHLOR 0.9% PF (SALINE LOCK) 10ML VIAL/SYR IV SCH (11:42)
[2022-08-20] MEDS: SPIRONOLACTONE 25 MG TAB PO SCH (11:42)
[2022-08-20] MEDS: ENOXAPARIN SOD 40 MG/0.4 ML SYRINGE SC SCH (11:43)
[2022-08-20 13:00] VITALS: BP 112/79
[2022-08-20 15:30] VITALS: BP 112/79
[2022-08-20] MEDS ORDERED: cefTRIAXone 1GM/50ML D5W 50 ML IV ONE (15:30)
[2022-08-20] MEDS: SODIUM CHLORIDE 0.9% 1,000 ML IV SCH (16:38)
[2022-08-20 17:00] VITALS: BP 128/64
== END 2022-08-20 17:20 | disposition home health service (06) | DRG 314 ==
LOC: ER 12:53 → OVERFLOW 16:04 → CENTRAL 08-16 14:49
PROVIDERS: ADMIT Nurse Practitioner Family; ATTEND Internal Medicine
PROC: 0Y6R0Z0 Detachment at Right 2nd Toe, Complete, Open Approach (ICD-10-PCS; principal; 2022-08-16 12:43)
PROC: 02HV33Z Insertion of Infusion Device into Superior Vena Cava, Percutaneous Approach (ICD-10-PCS; 2022-08-18)
PROC: B548ZZA Ultrasonography of Superior Vena Cava, Guidance (ICD-10-PCS; 2022-08-18)
DX: E11.69 Type 2 diabetes mellitus with other specified complication (principal); M86.171 Other acute osteomyelitis, right ankle and foot; L03.115 Cellulitis of right lower limb; L97.519 Non-pressure chronic ulcer of other part of right foot with unspecified severity; E11.621 Type 2 diabetes mellitus with foot ulcer; E11.65 Type 2 diabetes mellitus with hyperglycemia; E66.01 Morbid (severe) obesity due to excess calories; Z20.822 Contact with and (suspected) exposure to COVID-19; E78.2 Mixed hyperlipidemia; I10 Essential (primary) hypertension; Z89.421 Acquired absence of other right toe(s); Z89.411 Acquired absence of right great toe; Z83.3 Family history of diabetes mellitus; Z79.4 Long term (current) use of insulin; Z68.41 Body mass index [BMI] 40.0-44.9, adult
CPT/HCPCS: 36415; 36569; 71045; 73700; 73718; 80053; 80061; 82962; 83036; 84443; 85025; 85610; 85652; 85730; 87075; 87205; 87426; 96361; 96374; C9113; G0378; J0690; J0696; J1100; J1815; J2250; J2704; J3490